=== PATIENT | female | born 1940 | race Caucasian/White ===

== ENCOUNTER 2021-02-23 06:22 | Day surgery (SDC) | payer MEDICARE, BC ==
[2021-02-23] VITALS (9 sets, daily range): BP systolic 88–138; BP diastolic 48–67
[~2021-02-23] VITALS: Ht 160 cm; Wt 64.9 kg
[~2021-02-23 06:22] MED LIST: ALBU8HFA PO; AMLO2.5T4 PO; BUDE10.22 INH; CHOL400C2 PO; DULO30CA52 PO; ESOM20CA PO; FLUO15OI15 TOP; LEVO100T PO; LIFI1DRO LEFTEYE; LORA2TAB96 PO; MAGN100T5 PO; ROSU20TA2 PO
[2021-02-23] MEDS ORDERED: normal saline 1,000 ML IV SCH (06:55)
[2021-02-23] MEDS ORDERED: diphenhydrAMINE 25mg capsule PO PRN (06:55)
[2021-02-23] MEDS ORDERED: ROSU10TA2 PO (06:58)
[2021-02-23] MEDS ORDERED: FLUT1AER (06:58)
[2021-02-23 07:34] LABS: BASOPHILS % (AUTO) 1.1 % (0-1); EOSINOPHILS # (AUTO) 0.3 X10'3 (0-0.9); EOSINOPHILS % (AUTO) 7.1 % (0-6); HEMATOCRIT 39.6 % (35.0-45.0); HEMOGLOBIN 13.1 g/dl (12.0-16.0); LYMPHOCYTES # (AUTO) 1.2 X10'3 (1.1-4.8); LYMPHOCYTES % (AUTO) 28.1 % (21-51); MEAN CORPUSCULAR HGB CONC 33.2 g/dL (33.0-36.5); MEAN CORPUSCULAR VOLUME 90.4 FL (78-98); MEAN PLATELET VOLUME 7.9 FL (7.4-10.4); MONOCYTES # (AUTO) 0.5 X10'3 (0-0.9); MONOCYTES % (AUTO) 12.2 % (2-12); NEUTROPHILS # (AUTO) 2.3 X10'3 (1.8-7.7); NEUTROPHILS % (AUTO) 51.5 % (42-75); PLATELET COUNT 254 X10'3 (140-440); RED BLOOD COUNT 4.38 X10'6 (4.20-5.60); RED CELL DISTRIBUTION WIDTH 13.7 % (11.5-14.5); WHITE BLOOD COUNT 4.4 X10'3 (4.5-11.0)
[2021-02-23 07:57] LABS: ALBUMIN 3.8 G/DL (3.4-5.0); ANION GAP 12 (8-16); BLOOD UREA NITROGEN 20 MG/DL (7-18); BUN/CREATININE RATIO 22.5 (6.6-38.0); CALCIUM 9.1 MG/DL (8.5-10.1); CHLORIDE 108 MMOL/L (99-107); CREATININE 0.89 MG/DL (0.40-0.90); GLUCOSE 96 MG/DL (70-104); MAGNESIUM 2.2 MG/DL (1.5-2.4); POTASSIUM 3.9 MMOL/L (3.5-5.1); SODIUM 145 MMOL/L (135-145); TOTAL CARBON DIOXIDE 25.2 MMOL/L (24-32); eGFR 61 ML/MIN
[2021-02-23] MEDS ORDERED: iohexol 350MG/ML 100ml bottle IV ONE (08:12)
[2021-02-23] MEDS ORDERED: midazolam 1 mg/ML 2ml injection ONE (08:12)
[2021-02-23] MEDS ORDERED: fentaNYL/PF 50MCG/1 ML 2ML syringe ONE (08:12)
[2021-02-23] MEDS ORDERED: LIDOcaine 1% (10mg/ml)w/preservative injection 20ml MDV ONE (08:12)
[2021-02-23] MEDS ORDERED: heparin 1,000unit/ml 10ml vial 10 ML ONE (08:12)
[2021-02-23] MEDS ORDERED: iohexol 350 MG/ML 50ML vial IV ONE (08:12)
[2021-02-23] MEDS ORDERED: ondansetron/PF 4mg/2ml inj ONE (09:50)
[2021-02-23] MEDS ORDERED: normal saline 1000ml 1,000 ML IV ONE (10:45)
[2021-02-23] MEDS ORDERED: HYDROcodone/acetaminophen 10/325mg tab PO PRN (10:45)
[2021-02-23] MEDS ORDERED: HYDROcodone/acetaminophen 5mg/325mg tablet PO PRN (10:45)
[2021-02-23] MEDS ORDERED: ondansetron/PF 4mg/2ml inj IV PRN (10:45)
[2021-02-23] MEDS ORDERED: proCHLORperazine 10 MG/2 ml inj IV PRN (10:45)
== END 2021-02-23 13:35 | disposition home or self-care (01) ==
LOC: SSTAY O 06:22
PROVIDERS: ATTEND Internal Medicine Cardiovascular Disease
DX: R94.39 Abnormal result of other cardiovascular function study (principal); R07.89 Other chest pain; I10 Essential (primary) hypertension; E78.00 Pure hypercholesterolemia, unspecified; J45.909 Unspecified asthma, uncomplicated; E05.00 Thyrotoxicosis with diffuse goiter without thyrotoxic crisis or storm; Z79.899 Other long term (current) drug therapy; Z90.710 Acquired absence of both cervix and uterus; Z98.890 Other specified postprocedural states; Z88.2 Allergy status to sulfonamides
CPT/HCPCS: 36415; 80048; 83735; 85025; 85610; 93005; 93458; 99152; C1760; C1769; C1894; J1644; J2001; J2250; J2405; J3010; J7030; Q0163; Q9967; 99153; A4620; A6258

== ENCOUNTER 2021-10-27 10:43 | Emergency (ER) | payer MEDICARE, BC ==
[~2021-10-27] VITALS: Ht 160 cm; Wt 59.1 kg
[~2021-10-27 10:43] MED LIST changes: -ALBU8HFA PO; -BUDE10.22 INH; +FLUT1AER; +ROSU10TA2 PO; -ROSU20TA2 PO
[2021-10-27 11:05] VITALS: BP 125/70
[2021-10-27] MEDS ORDERED: triamcinolone acetonide 40mg/ml inj IM ONE (12:00)
== END 2021-10-27 12:28 | disposition home or self-care (01) ==
LOC: ER 10:43
DX: H57.13 Ocular pain, bilateral (principal); T49.0X5A Adverse effect of local antifungal, anti-infective and anti-inflammatory drugs, initial encounter; Y92.89 Other specified places as the place of occurrence of the external cause; E78.00 Pure hypercholesterolemia, unspecified; I10 Essential (primary) hypertension; I25.10 Atherosclerotic heart disease of native coronary artery without angina pectoris; I25.2 Old myocardial infarction; K21.9 Gastro-esophageal reflux disease without esophagitis; E03.9 Hypothyroidism, unspecified; Z79.899 Other long term (current) drug therapy; Z88.2 Allergy status to sulfonamides; Z88.8 Allergy status to other drugs, medicaments and biological substances
CPT/HCPCS: 96372; 99283; J3301; 99281